=== PATIENT | female | born 1960 | race Caucasian/White ===

== ENCOUNTER 2022-08-26 19:44 | Emergency (ER) | payer MEDICAID, OTHER ==
[~2022-08-26] VITALS: Ht 160 cm; Wt 87.0 kg
[2022-08-26 20:04] VITALS: BP 143/92
[2022-08-26] MEDS ORDERED: HYDROCODONE/ACETAMINOPHEN 5/325MG TABLET PO ONE (21:00)
[2022-08-26] MEDS ORDERED: T3 PO (22:53)
== END 2022-08-26 23:05 | disposition home or self-care (01) ==
LOC: ER 19:44
DX: M79.604 Pain in right leg (principal); M71.21 Synovial cyst of popliteal space [Baker], right knee; I10 Essential (primary) hypertension; Z90.49 Acquired absence of other specified parts of digestive tract
CPT/HCPCS: 73590; 93971; 99284